=== PATIENT | female | born 1960 | race Caucasian/White ===

== ENCOUNTER 2017-12-21 19:36 | Emergency (ER) | payer OTHER ==
[2017-12-21] MEDS: HYDROCODONE/APAP (10/325) TAB PO (20:27)
[2017-12-21] MEDS: ONDANSETRON (ODT) 4 MG TAB ODT (20:27)
== END 2017-12-21 22:21 | disposition home or self-care (01) ==
LOC: E/R 19:36 → FTE 22:21
DX: S93.602A Unspecified sprain of left foot, initial encounter (principal); E03.9 Hypothyroidism, unspecified; W18.39XA Other fall on same level, initial encounter; Y92.9 Unspecified place or not applicable
CPT/HCPCS: 29515; 73630-LT; 99283-25